=== PATIENT | male | born 1960 | race Caucasian/White ===

== ENCOUNTER 2018-07-23 11:18 | Day surgery (SDC) | payer OTHER ==
[2018-07-23] MEDS ORDERED: LACTATED RINGER'S 1,000 ML IV (13:00)
[2018-07-23] MEDS ORDERED: PROPOFOL 20 ML (14:12)
[2018-07-23] MEDS ORDERED: ROCURONIUM 50 MG INJ (14:12)
[2018-07-23] MEDS ORDERED: LIDOCAINE 2% (SDV) 5 ML INJ (14:12)
[2018-07-23] MEDS ORDERED: DEXAMETHASONE 4 MG/ML 5 ML INJ (14:40)
[2018-07-23] MEDS ORDERED: ONDANSETRON 4 MG INJ (14:41)
[2018-07-23] MEDS: EPINEPHrine 1 MG/ML 30 ML INJ ZFS (15:14)
[2018-07-23] MEDS: ROPIVACAINE 0.5 % 30 ML VIAL (15:15)
[2018-07-23] MEDS ORDERED: NEOSTIGMINE 3 MG/3 ML SYRINGE (15:28)
[2018-07-23] MEDS ORDERED: GLYCOPYRROLATE 0.4 MG INJ (15:29)
[2018-07-23] MEDS ORDERED: FENTAnyl 50 MCG/ML VIAL (15:43)
[2018-07-23] MEDS ORDERED: HYDROmorphONE 1 MG/5 ML IV SYRINGE IV ×2 (15:43→16:00)
[2018-07-23] MEDS ORDERED: MEPERIDINE 25 MG INJ (15:43)
[2018-07-23] MEDS ORDERED: HYDROCODONE/APAP (5/325) TAB PO (16:00)
[2018-07-23] MEDS ORDERED: LABETALOL HCL 20MG INJ IV (16:00)
[2018-07-23] MEDS ORDERED: ONDANSETRON 4 MG INJ IV (16:00)
[2018-07-23] MEDS ORDERED: morphine 10 MG INJ IV (16:00)
[2018-07-23] MEDS ORDERED: EPHEDrine 25 MG/5 ML SYG IV (16:00)
[2018-07-23] MEDS ORDERED: ALBUTEROL 0.083% (NEB) 2.5 MG/3 ML AMP HHN (16:00)
[2018-07-23] MEDS ORDERED: DIPHENHYDRAMINE 50 MG INJ IV (16:00)
[2018-07-23] MEDS ORDERED: MIDAZOLAM 1 MG/ML 2 ML INJ IV (16:00)
[2018-07-23] MEDS ORDERED: hydrALAzine 20 MG INJ IV (16:00)
[2018-07-23] MEDS ORDERED: FENTAnyl 50 MCG/ML VIAL IV ×3 (16:00)
[2018-07-23] MEDS ORDERED: KETOROLAC 30 MG INJ IV (16:00)
[2018-07-23] MEDS: HYDROmorphONE 1 MG/5 ML IV SYRINGE IV ×2 (16:11→16:16)
[2018-07-23] MEDS: MEPERIDINE 25 MG INJ IV (16:11)
[2018-07-23] MEDS: ONDANSETRON 4 MG INJ IV (16:11)
[2018-07-23] MEDS: HYDROCODONE/APAP (5/325) TAB PO (16:21)
== END 2018-07-23 18:00 | disposition home or self-care (01) ==
LOC: SDS 11:18
DX: S83.242A Other tear of medial meniscus, current injury, left knee, initial encounter (principal); S83.282A Other tear of lateral meniscus, current injury, left knee, initial encounter; M17.12 Unilateral primary osteoarthritis, left knee; E78.5 Hyperlipidemia, unspecified; E66.9 Obesity, unspecified; X58.XXXA Exposure to other specified factors, initial encounter; Y93.89 Activity, other specified; Y92.89 Other specified places as the place of occurrence of the external cause; Y99.8 Other external cause status
CPT/HCPCS: 29880; 86850; 86900; 86901